=== PATIENT | male | born 1985 | race Caucasian/White ===

== ENCOUNTER → 2018-02-10 | Outpatient (CLI) | payer OTHER ==
[~2018-02-10] MED LIST: HYDCHL25; HYDCHL25 PO; IBUP800 PO; LISI20 PO; NORT10 PO; Norco 5-325 Ta1 EACH PO; Testostero100 MG/1 M IM
[2018-02-10 14:57] LABS: BASOPHILS ABSOLUTE AUTO 0.13 K/mm3 (0.00-0.23); BASOPHILS PERCENT AUTO 1 % (0-2); EOSINOPHILS ABSOLUTE AUTO 0.01 K/mm3 (0.00-0.68); EOSINOPHILS PERCENT AUTO 0 % (0-6); Hemoglobin 19.3 g/dL (13.5-17.5); IMMATURE GRAN ABSOLUTE AUTO 0.13 K/mm3 (0.00-0.10); IMMATURE GRAN PERCENT AUTO 1 % (0-1); LYMPHOCYTES ABSOLUTE AUTO 1.77 K/mm3 (0.84-5.20); LYMPHOCYTES PERCENT AUTO 8 % (21-46); MONOCYTES PERCENT AUTO 11 % (4-13); Mean Corpuscular HGB 29.2 pg (26.0-34.0); Mean Corpuscular HGB Conc 34.7 g/dL (31.5-36.5); Mean Corpuscular Volume 84 fL (80-100); Mean Platelet Volume 11.3 fL (9.1-12.4); NEUTROPHILS ABSOLUTE AUTO 19.07 K/mm3 (1.96-9.15); NEUTROPHILS PERCENT AUTO 81 % (41-73); Platelet Count 328 K/mm3 (150-400); RDW Coefficient Variation 15.7 % (11.7-14.2); RDW Standard Deviation 43.1 fL (35.1-46.3); White Blood Cell Count 23.61 K/mm3 (4.00-11.30)
[2018-02-10 14:59] LABS: Albumin, Blood 4.1 g/dL (3.4-5.0); Bilirubin, Total 1.4 mg/dL (0.1-1.0); Creatinine, Blood 1.5 mg/dL (0.60-1.20); Globulin, Blood 4.1 g/dL (2.2-4.0); Total Protein, Blood 8.2 g/dL (6.4-8.2)
[2018-02-10 15:00] LABS: Hematocrit 55.6 % (37.0-53.0)
== END | disposition home or self-care (01) ==
LOC: LAB SHORT 14:41 → LAB EV 14:41
PROVIDERS: General Practice
DX: L03.119 Cellulitis of unspecified part of limb (principal)
CPT/HCPCS: 80053; 85025; 85379

== ENCOUNTER → 2018-02-11 | Outpatient (CLI) | payer OTHER ==
[~2018-02-11] MED LIST changes: -HYDCHL25 PO; +LISI20; -LISI20 PO
[2018-02-11 12:07] LABS: BASOPHILS ABSOLUTE AUTO 0.11 K/mm3 (0.00-0.23); BASOPHILS PERCENT AUTO 1 % (0-2); EOSINOPHILS ABSOLUTE AUTO 0.08 K/mm3 (0.00-0.68); EOSINOPHILS PERCENT AUTO 0 % (0-6); Hematocrit 52.6 % (37.0-53.0); Hemoglobin 18.5 g/dL (13.5-17.5); IMMATURE GRAN ABSOLUTE AUTO 0.11 K/mm3 (0.00-0.10); IMMATURE GRAN PERCENT AUTO 1 % (0-1); LYMPHOCYTES ABSOLUTE AUTO 1.83 K/mm3 (0.84-5.20); LYMPHOCYTES PERCENT AUTO 8 % (21-46); MONOCYTES ABSOLUTE AUTO 1.93 K/mm3 (0.16-1.47); MONOCYTES PERCENT AUTO 9 % (4-13); Mean Corpuscular HGB 29.9 pg (26.0-34.0); Mean Corpuscular HGB Conc 35.2 g/dL (31.5-36.5); Mean Corpuscular Volume 85 fL (80-100); NEUTROPHILS PERCENT AUTO 81 % (41-73); RDW Coefficient Variation 14.6 % (11.7-14.2); RDW Standard Deviation 43.8 fL (35.1-46.3); Red Blood Cell Count 6.18 M/mm3 (4.30-5.90); White Blood Cell Count 21.86 K/mm3 (4.00-11.30)
[2018-02-11 12:44] LABS: Mean Platelet Volume 11.2 fL (9.1-12.4); Platelet Count 284 K/mm3 (150-400)
== END | disposition home or self-care (01) ==
LOC: LAB SHORT 12:03 → LAB EV 12:03
PROVIDERS: General Practice
DX: L03.119 Cellulitis of unspecified part of limb (principal)
CPT/HCPCS: 85025

== ENCOUNTER 2018-02-15 11:25 | Inpatient (IN) | payer OTHER ==
[~2018-02-15] VITALS: Ht 188 cm; Wt 168.6 kg
[~2018-02-15 11:25] MED LIST changes: -LISI20; +LISI20 PO
[2018-02-15 12:51] LABS: BASOPHILS ABSOLUTE AUTO 0.14 K/mm3 (0.00-0.23); BASOPHILS PERCENT AUTO 1 % (0-2); EOSINOPHILS ABSOLUTE AUTO 0.43 K/mm3 (0.00-0.68); EOSINOPHILS PERCENT AUTO 3 % (0-6); Hematocrit 52.3 % (37.0-53.0); Hemoglobin 17.1 g/dL (13.5-17.5); IMMATURE GRAN ABSOLUTE AUTO 0.26 K/mm3 (0.00-0.10); IMMATURE GRAN PERCENT AUTO 2 % (0-1); LYMPHOCYTES ABSOLUTE AUTO 1.89 K/mm3 (0.84-5.20); LYMPHOCYTES PERCENT AUTO 13 % (21-46); MONOCYTES ABSOLUTE AUTO 1.31 K/mm3 (0.16-1.47); MONOCYTES PERCENT AUTO 9 % (4-13); Mean Corpuscular HGB 28.1 pg (26.0-34.0); Mean Corpuscular HGB Conc 32.7 g/dL (31.5-36.5); Mean Corpuscular Volume 86 fL (80-100); Mean Platelet Volume 10.6 fL (9.1-12.4); NEUTROPHILS ABSOLUTE AUTO 10.94 K/mm3 (1.96-9.15); NEUTROPHILS PERCENT AUTO 73 % (41-73); Platelet Count 453 K/mm3 (150-400); RDW Coefficient Variation 14.2 % (11.7-14.2); RDW Standard Deviation 44.9 fL (35.1-46.3); Red Blood Cell Count 6.08 M/mm3 (4.30-5.90); White Blood Cell Count 14.97 K/mm3 (4.00-11.30)
[2018-02-15 12:58] LABS: Bun/Creatinine Ratio 16.9 (12.0-20.0); Calcium, Blood 9.3 mg/dL (8.5-10.1); Creatinine, Blood 1.77 mg/dL (0.60-1.20); Potassium, Blood 4.1 mmol/L (3.5-5.5)
[2018-02-15] MEDS ORDERED: HYDCHL25 PO (13:35)
[2018-02-16 04:38] LABS: BASOPHILS ABSOLUTE AUTO 0.08 K/mm3 (0.00-0.23); BASOPHILS PERCENT AUTO 1 % (0-2); EOSINOPHILS ABSOLUTE AUTO 0.01 K/mm3 (0.00-0.68); EOSINOPHILS PERCENT AUTO 0 % (0-6); Hematocrit 51.1 % (37.0-53.0); Hemoglobin 16.9 g/dL (13.5-17.5); IMMATURE GRAN ABSOLUTE AUTO 0.28 K/mm3 (0.00-0.10); IMMATURE GRAN PERCENT AUTO 2 % (0-1); LYMPHOCYTES ABSOLUTE AUTO 1.19 K/mm3 (0.84-5.20); LYMPHOCYTES PERCENT AUTO 9 % (21-46); MONOCYTES ABSOLUTE AUTO 0.44 K/mm3 (0.16-1.47); MONOCYTES PERCENT AUTO 3 % (4-13); Mean Corpuscular HGB 28.8 pg (26.0-34.0); Mean Corpuscular HGB Conc 33.1 g/dL (31.5-36.5); Mean Corpuscular Volume 87 fL (80-100); Mean Platelet Volume 10.8 fL (9.1-12.4); NEUTROPHILS PERCENT AUTO 85 % (41-73); Platelet Count 452 K/mm3 (150-400); RDW Coefficient Variation 13.9 % (11.7-14.2); RDW Standard Deviation 44.9 fL (35.1-46.3); Red Blood Cell Count 5.86 M/mm3 (4.30-5.90)
[2018-02-16 05:05] LABS: Albumin/Globulin Ratio 0.5 (0.8-1.8); Bilirubin, Total 0.5 mg/dL (0.1-1.0); Bun/Creatinine Ratio 18.8 (12.0-20.0); Calcium, Blood 8.8 mg/dL (8.5-10.1); Creatinine, Blood 1.6 mg/dL (0.60-1.20); Globulin, Blood 5.5 g/dL (2.2-4.0); Potassium, Blood 5.1 mmol/L (3.5-5.5); Total Protein, Blood 8.5 g/dL (6.4-8.2)
[2018-02-16 14:45] LABS: Vancomycin, Trough 13.9 ug/mL (5.0-10.0)
[2018-02-17 05:35] LABS: Anion Gap 9 mmol/L (6-16); Blood Urea Nitrogen 21 mg/dL (8-24); Bun/Creatinine Ratio 19.6 (12.0-20.0); CO2, Blood 22 mmol/L (21-32); Calcium, Blood 8.3 mg/dL (8.5-10.1); Chloride, Blood 106 mmol/L (98-108); Creatinine, Blood 1.07 mg/dL (0.60-1.20); Glomerular Filtration Rate >60 (60-); Glucose, Blood 180 mg/dL (70-99); Potassium, Blood 4.7 mmol/L (3.5-5.5); Sodium, Blood 137 mmol/L (136-145)
[2018-02-17] MEDS ORDERED: TYLENOL325 MG PO (12:36)
[2018-02-17] MEDS ORDERED: MIRALAX17 GM PO (12:36)
[2018-02-17] MEDS ORDERED: OXYC5 PO (12:37)
[2018-02-17] MEDS ORDERED: SENN187 PO (12:37)
[2018-02-17] MEDS ORDERED: VARE1 PO (12:39)
[2018-02-17] MEDS ORDERED: CLIN150 PO (12:40)
== END 2018-02-17 16:21 | disposition home or self-care (01) | DRG 581 ==
LOC: ER 11:25 → MEDS 11:26 → ENPENDDIS 02-17 08:43 → MEDS 02-17 16:21
PROVIDERS: Emergency Medicine; Internal Medicine; Surgery
PROC: 0J9N0ZZ Drainage of Right Lower Leg Subcutaneous Tissue and Fascia, Open Approach (ICD-10-PCS; principal; 2018-02-15 18:00)
DX: L02.415 Cutaneous abscess of right lower limb (principal); L03.115 Cellulitis of right lower limb; B95.1 Streptococcus, group B, as the cause of diseases classified elsewhere; I10 Essential (primary) hypertension; N28.9 Disorder of kidney and ureter, unspecified; T39.395A Adverse effect of other nonsteroidal anti-inflammatory drugs [NSAID], initial encounter; F17.220 Nicotine dependence, chewing tobacco, uncomplicated; Z79.899 Other long term (current) drug therapy
CPT/HCPCS: 36415; 73701; 80048; 80053; 80202; 83605; 85025; 87040; 87070; 87075; 87147; 87205; 93005; 93010; 96374; 99285; J1100; J1650; J1885; J2001; J2250; J2405; J3010; J3370; J7030; J7050; J7120; Q9967

== ENCOUNTER → 2018-03-30 | Outpatient (CLI) | payer OTHER ==
[~2018-03-30] MED LIST changes: +CLIN150 PO; +HYDCHL25 PO; +MIRALAX17 GM PO; +OXYC5 PO; +SENN187 PO; +TYLENOL325 MG PO; +VARE1 PO
[2018-03-30 19:15] LABS: BASOPHILS ABSOLUTE AUTO 0.08 K/mm3 (0.00-0.23); BASOPHILS PERCENT AUTO 1 % (0-2); EOSINOPHILS ABSOLUTE AUTO 0.36 K/mm3 (0.00-0.68); EOSINOPHILS PERCENT AUTO 3 % (0-6); Hematocrit 51.1 % (37.0-53.0); IMMATURE GRAN ABSOLUTE AUTO 0.03 K/mm3 (0.00-0.10); IMMATURE GRAN PERCENT AUTO 0 % (0-1); LYMPHOCYTES ABSOLUTE AUTO 2.99 K/mm3 (0.84-5.20); LYMPHOCYTES PERCENT AUTO 25 % (21-46); MONOCYTES ABSOLUTE AUTO 1.04 K/mm3 (0.16-1.47); MONOCYTES PERCENT AUTO 9 % (4-13); Mean Corpuscular HGB 29.6 pg (26.0-34.0); Mean Corpuscular HGB Conc 35.2 g/dL (31.5-36.5); Mean Corpuscular Volume 84 fL (80-100); Mean Platelet Volume 11.4 fL (9.1-12.4); NEUTROPHILS PERCENT AUTO 63 % (41-73); Platelet Count 387 K/mm3 (150-400); RDW Coefficient Variation 15.1 % (11.7-14.2); RDW Standard Deviation 44.4 fL (35.1-46.3); Red Blood Cell Count 6.08 M/mm3 (4.30-5.90)
[2018-03-30 19:25] LABS: Alanine Aminotransfer (ALT/SGP 58 U/L (12-78); Alk Phos 79 U/L (40-126); Anion Gap 13 mmol/L (6-16); Aspartate Aminotrans (AST/SGOT 25 U/L (12-37); Bilirubin, Total 0.5 mg/dL (0.1-1.0); Blood Urea Nitrogen 15 mg/dL (8-24); Bun/Creatinine Ratio 11.2 (12.0-20.0); CO2, Blood 23 mmol/L (21-32); Calcium, Blood 8.8 mg/dL (8.5-10.1); Chloride, Blood 100 mmol/L (98-108); Creatinine, Blood 1.34 mg/dL (0.60-1.20); Glomerular Filtration Rate >60 (60-); Glucose, Blood 97 mg/dL (70-99); Potassium, Blood 3.4 mmol/L (3.5-5.5); Sodium, Blood 136 mmol/L (136-145)
== END ==
LOC: LAB EV 19:10 → LAB SHORT 19:10
PROVIDERS: Nurse Practitioner
DX: R19.7 Diarrhea, unspecified (principal)
CPT/HCPCS: 80053; 85025

== ENCOUNTER → 2018-04-01 | Outpatient (CLI) | payer OTHER ==
[2018-04-01 12:33] LABS: Adenovirus F 40/41 Not Detected (NOT DETECT); Astrovirus Not Detected (NOT DETECT); Campylobacter Sp Not Detected (NOT DETECT); Cryptosporidium Not Detected (NOT DETECT); Cyclospora Cayetanensis Not Detected (NOT DETECT); E. Coli O157 Not Detected (NOT DETECT); Entamoeba Histolytica Not Detected (NOT DETECT); Enteroaggregative E. coli-EAEC Not Detected (NOT DETECT); Enteropathogenic E. coli-EPEC Not Detected (NOT DETECT); Enterotoxigenic E. coli-ETEC Not Detected (NOT DETECT); Giardia Lamblia Not Detected (NOT DETECT); Norovirus GI/GII Not Detected (NOT DETECT); Plesiomonas Shigelloides Not Detected (NOT DETECT); Rotavirus A Not Detected (NOT DETECT); Salmonella Sp Not Detected (NOT DETECT); Sapovirus Not Detected (NOT DETECT); Shiga Toxin-prod E. coli-STEC Not Detected (NOT DETECT); Shigella/Enteroin E. coli-EIEC Not Detected (NOT DETECT); Vibrio Cholerae Not Detected (NOT DETECT); Vibrio Sp Not Detected (NOT DETECT); Yersinia Enterocolitica Not Detected (NOT DETECT)
== END ==
LOC: LAB EV 12:31 → LAB SHORT 12:31
PROVIDERS: Nurse Practitioner
DX: R19.7 Diarrhea, unspecified (principal)
CPT/HCPCS: 87507

== ENCOUNTER 2019-04-23 19:22 | Emergency (ER) | payer OTHER ==
[~2019-04-23] VITALS: Ht 185.4 cm; Wt 155.6 kg
[2019-04-23 20:22] LABS: BASOPHILS ABSOLUTE AUTO 0.07 K/mm3 (0.00-0.23); BASOPHILS PERCENT AUTO 1 % (0-2); EOSINOPHILS ABSOLUTE AUTO 0.29 K/mm3 (0.00-0.68); EOSINOPHILS PERCENT AUTO 2 % (0-6); Hematocrit 52.9 % (37.0-53.0); Hemoglobin 18.2 g/dL (13.5-17.5); IMMATURE GRAN ABSOLUTE AUTO 0.05 K/mm3 (0.00-0.10); IMMATURE GRAN PERCENT AUTO 0 % (0-1); LYMPHOCYTES ABSOLUTE AUTO 1.54 K/mm3 (0.84-5.20); LYMPHOCYTES PERCENT AUTO 12 % (21-46); MONOCYTES ABSOLUTE AUTO 0.88 K/mm3 (0.16-1.47); MONOCYTES PERCENT AUTO 7 % (4-13); Mean Corpuscular HGB 29.4 pg (26.0-34.0); Mean Corpuscular HGB Conc 34.4 g/dL (31.5-36.5); Mean Corpuscular Volume 85 fL (80-100); Mean Platelet Volume 11.3 fL (9.1-12.4); NEUTROPHILS ABSOLUTE AUTO 9.61 K/mm3 (1.96-9.15); NEUTROPHILS PERCENT AUTO 77 % (41-73); Platelet Count 305 K/mm3 (150-400); RDW Coefficient Variation 13.8 % (11.7-14.2); RDW Standard Deviation 42.8 fL (35.1-46.3); White Blood Cell Count 12.44 K/mm3 (4.00-11.30)
[2019-04-23 20:39] LABS: Albumin, Blood 3.5 g/dL (3.4-5.0); Albumin/Globulin Ratio 0.8 (0.8-1.8); Bilirubin, Total 0.4 mg/dL (0.1-1.0); Bun/Creatinine Ratio 13.2 (12.0-20.0); Calcium, Blood 9.3 mg/dL (8.5-10.1); Creatinine, Blood 1.44 mg/dL (0.60-1.20); Globulin, Blood 4.3 g/dL (2.2-4.0); Potassium, Blood 3.5 mmol/L (3.5-5.5); Total Protein, Blood 7.8 g/dL (6.4-8.2)
[2019-04-23] MEDS ORDERED: Roxicodone5 MG PO (22:37)
[2019-04-23] MEDS ORDERED: Clindamycin HC300 MG PO (22:37)
== END 2019-04-23 23:25 | disposition home or self-care (01) ==
LOC: ER 19:22
PROVIDERS: Physician Assistant
DX: L03.116 Cellulitis of left lower limb (principal); I10 Essential (primary) hypertension; Z88.5 Allergy status to narcotic agent; Z79.899 Other long term (current) drug therapy; Z87.442 Personal history of urinary calculi
CPT/HCPCS: 36415; 80053; 83605; 85025; 96361; 96365; 99283-25; J7030; J7120

== ENCOUNTER 2019-04-24 08:50 | Day surgery (SDC) | payer OTHER ==
[~2019-04-24 08:50] MED LIST changes: +Clindamycin HC300 MG PO; +Roxicodone5 MG PO
== END 2019-04-24 17:10 | disposition home or self-care (01) ==
LOC: ATC 08:50
DX: L03.116 Cellulitis of left lower limb (principal); I10 Essential (primary) hypertension
CPT/HCPCS: 96365

== ENCOUNTER 2019-04-25 00:30 | Day surgery (SDC) | payer OTHER | END 2019-04-25 16:21 | disposition home or self-care (01) | LOC: ATC 00:30 | DX: L03.116 Cellulitis of left lower limb (principal); I10 Essential (primary) hypertension; Z79.899 Other long term (current) drug therapy; Z88.5 Allergy status to narcotic agent | CPT/HCPCS: 96365 ==

== ENCOUNTER 2019-04-25 00:47 | Emergency (ER) | payer OTHER ==
[~2019-04-25] VITALS: Ht 185.4 cm; Wt 104.3 kg
== END 2019-04-25 01:47 | disposition home or self-care (01) ==
LOC: ER 00:47
DX: L03.116 Cellulitis of left lower limb (principal); I10 Essential (primary) hypertension; Z87.442 Personal history of urinary calculi; Z88.5 Allergy status to narcotic agent; Z79.899 Other long term (current) drug therapy
CPT/HCPCS: 96365

== ENCOUNTER 2019-04-25 23:45 | Emergency (ER) | payer OTHER ==
[~2019-04-25] VITALS: Ht 185.4 cm; Wt 160.6 kg
== END 2019-04-26 00:32 | disposition home or self-care (01) ==
LOC: ER 23:45
DX: L03.116 Cellulitis of left lower limb (principal); I10 Essential (primary) hypertension; Z76.89 Persons encountering health services in other specified circumstances; Z87.442 Personal history of urinary calculi; Z88.5 Allergy status to narcotic agent; Z79.899 Other long term (current) drug therapy
CPT/HCPCS: 96365

== ENCOUNTER 2019-04-26 00:36 | Day surgery (SDC) | payer OTHER | END 2019-04-26 16:12 | disposition home or self-care (01) | LOC: ATC 00:36 | DX: L03.116 Cellulitis of left lower limb (principal); I10 Essential (primary) hypertension; Z79.899 Other long term (current) drug therapy; Z88.5 Allergy status to narcotic agent | CPT/HCPCS: 96365 ==

== ENCOUNTER 2019-08-03 14:38 | Emergency (ER) | payer SELFPAY ==
[~2019-08-03] VITALS: Ht 185.4 cm; Wt 158.8 kg
[2019-08-03] MEDS ORDERED: CEPH500 PO (15:28)
[2019-08-03] MEDS ORDERED: Monodox100 MG PO (15:28)
== END 2019-08-03 15:34 | disposition home or self-care (01) ==
LOC: ER 14:38
DX: L03.116 Cellulitis of left lower limb (principal); I10 Essential (primary) hypertension; Z88.5 Allergy status to narcotic agent; Z79.899 Other long term (current) drug therapy
CPT/HCPCS: 99282

== ENCOUNTER 2019-12-12 08:45 | Emergency (ER) | payer MEDICAID ==
[~2019-12-12] VITALS: Ht 185.4 cm; Wt 145.2 kg
[~2019-12-12 08:45] MED LIST changes: +CEPH500 PO; +Monodox100 MG PO
[2019-12-12] MEDS ORDERED: EUTHYROX50 MC1 PO (09:21)
[2019-12-12] MEDS ORDERED: Bactrim Ds Tab1 EACH PO (09:31)
[2019-12-12] MEDS ORDERED: CEPH500 PO (09:31)
== END 2019-12-12 09:50 | disposition home or self-care (01) ==
LOC: ER 08:45
DX: L03.115 Cellulitis of right lower limb (principal); L03.116 Cellulitis of left lower limb; I10 Essential (primary) hypertension; Z88.5 Allergy status to narcotic agent; Z79.899 Other long term (current) drug therapy
CPT/HCPCS: 99283

== ENCOUNTER 2020-01-01 10:49 | Emergency (ER) | payer OTHER ==
[~2020-01-01] VITALS: Ht 185.4 cm; Wt 163.3 kg
[~2020-01-01 10:49] MED LIST changes: +Bactrim Ds Tab1 EACH PO; +EUTHYROX50 MC1 PO
[2020-01-01] MEDS ORDERED: Prinivil10 MG PO (11:29)
[2020-01-01] MEDS ORDERED: KEFLEX500 MG PO (11:29)
== END 2020-01-01 11:49 | disposition home or self-care (01) ==
LOC: ER 10:49
DX: M79.671 Pain in right foot (principal); I10 Essential (primary) hypertension; Z88.5 Allergy status to narcotic agent; Z79.899 Other long term (current) drug therapy; Z79.2 Long term (current) use of antibiotics
CPT/HCPCS: 99283

== ENCOUNTER 2020-05-10 15:57 | Emergency (ER) | payer OTHER ==
[~2020-05-10] VITALS: Ht 185.4 cm; Wt 163.3 kg
[~2020-05-10 15:57] MED LIST changes: +KEFLEX500 MG PO; +Prinivil10 MG PO
[2020-05-10] MEDS ORDERED: Bactrim Ds Tab1 EACH PO (16:17)
[2020-05-10] MEDS ORDERED: KEFLEX500 MG PO (16:17)
== END 2020-05-10 16:29 | disposition home or self-care (01) ==
LOC: ER 15:57
DX: L03.116 Cellulitis of left lower limb (principal); B95.62 Methicillin resistant Staphylococcus aureus infection as the cause of diseases classified elsewhere; I10 Essential (primary) hypertension; Z88.5 Allergy status to narcotic agent; Z79.899 Other long term (current) drug therapy; Z87.442 Personal history of urinary calculi
CPT/HCPCS: 99282

== ENCOUNTER 2020-12-26 19:48 | Emergency (ER) | payer OTHER ==
[~2020-12-26] VITALS: Ht 185.4 cm; Wt 147.4 kg
[2020-12-26 20:28] LABS: BASOPHILS ABSOLUTE AUTO 0.02 K/mm3 (0.00-0.23); BASOPHILS PERCENT AUTO 0 % (0-2); EOSINOPHILS ABSOLUTE AUTO 0.01 K/mm3 (0.00-0.68); EOSINOPHILS PERCENT AUTO 0 % (0-6); Hemoglobin 14.9 g/dL (13.5-17.5); IMMATURE GRAN ABSOLUTE AUTO 0.02 K/mm3 (0.00-0.10); IMMATURE GRAN PERCENT AUTO 0 % (0-1); LYMPHOCYTES ABSOLUTE AUTO 1.23 K/mm3 (0.84-5.20); LYMPHOCYTES PERCENT AUTO 22 % (21-46); MONOCYTES ABSOLUTE AUTO 0.33 K/mm3 (0.16-1.47); MONOCYTES PERCENT AUTO 6 % (4-13); Mean Corpuscular HGB 28.5 pg (26.0-34.0); Mean Corpuscular HGB Conc 34.7 g/dL (31.5-36.5); Mean Corpuscular Volume 82 fL (80-100); Mean Platelet Volume 10.8 fL (9.1-12.4); NEUTROPHILS ABSOLUTE AUTO 4.11 K/mm3 (1.96-9.15); NEUTROPHILS PERCENT AUTO 72 % (41-73); Platelet Count 252 K/mm3 (150-400); RDW Coefficient Variation 13.5 % (11.7-14.2); RDW Standard Deviation 40.7 fL (35.1-46.3); Red Blood Cell Count 5.22 M/mm3 (4.30-5.90); White Blood Cell Count 5.72 K/mm3 (4.00-11.30)
[2020-12-26 20:45] LABS: Alanine Aminotransfer (ALT/SGP 34 U/L (12-78); Albumin, Blood 2.9 g/dL (3.4-5.0); Albumin/Globulin Ratio 0.7 (0.8-1.8); Alk Phos 68 U/L (50-136); Anion Gap 6 mmol/L (6-16); Aspartate Aminotrans (AST/SGOT 31 U/L (12-37); Bilirubin, Total 0.3 mg/dL (0.1-1.0); Blood Urea Nitrogen 12 mg/dL (8-24); Bun/Creatinine Ratio 11.5 (12.0-20.0); CO2, Blood 27 mmol/L (21-32); Calcium, Blood 7.8 mg/dL (8.5-10.1); Chloride, Blood 98 mmol/L (98-108); Creatinine, Blood 1.04 mg/dL (0.60-1.20); Globulin, Blood 4.2 g/dL (2.2-4.0); Glomerular Filtration Rate >60 (60-); Glucose, Blood 114 mg/dL (70-99); Potassium, Blood 3.2 mmol/L (3.5-5.5); Sodium, Blood 131 mmol/L (136-145); Total Protein, Blood 7.1 g/dL (6.4-8.2)
== END 2020-12-27 01:10 | disposition home or self-care (01) ==
LOC: ER 19:48
PROVIDERS: Physician Assistant
DX: U07.1 COVID-19 (principal); R09.02 Hypoxemia; I10 Essential (primary) hypertension; Z79.899 Other long term (current) drug therapy; Z87.442 Personal history of urinary calculi
CPT/HCPCS: 71046; 71260; 80053; 85025; 99285-25; Q9967

== ENCOUNTER 2021-04-01 11:17 | Emergency (ER) | payer OTHER ==
[~2021-04-01] VITALS: Ht 185.4 cm; Wt 144.2 kg
[2021-04-01 12:10] LABS: BASOPHILS ABSOLUTE AUTO 0.14 K/mm3 (0.00-0.23); BASOPHILS PERCENT AUTO 1 % (0-2); EOSINOPHILS ABSOLUTE AUTO 0.51 K/mm3 (0.00-0.68); EOSINOPHILS PERCENT AUTO 3 % (0-6); Hematocrit 49.4 % (37.0-53.0); Hemoglobin 16.9 g/dL (13.5-17.5); IMMATURE GRAN ABSOLUTE AUTO 0.07 K/mm3 (0.00-0.10); IMMATURE GRAN PERCENT AUTO 0 % (0-1); LYMPHOCYTES ABSOLUTE AUTO 2.13 K/mm3 (0.84-5.20); LYMPHOCYTES PERCENT AUTO 14 % (21-46); MONOCYTES ABSOLUTE AUTO 1.14 K/mm3 (0.16-1.47); MONOCYTES PERCENT AUTO 7 % (4-13); Mean Corpuscular HGB 29.2 pg (26.0-34.0); Mean Corpuscular HGB Conc 34.2 g/dL (31.5-36.5); Mean Corpuscular Volume 85 fL (80-100); NEUTROPHILS ABSOLUTE AUTO 11.79 K/mm3 (1.96-9.15); NEUTROPHILS PERCENT AUTO 75 % (41-73); Platelet Count 403 K/mm3 (150-400); RDW Coefficient Variation 14.1 % (11.7-14.2); RDW Standard Deviation 43.8 fL (35.1-46.3); Red Blood Cell Count 5.79 M/mm3 (4.30-5.90); White Blood Cell Count 15.78 K/mm3 (4.00-11.30)
[2021-04-01 12:28] LABS: Alanine Aminotransfer (ALT/SGP 47 U/L (12-78); Albumin, Blood 3.6 g/dL (3.4-5.0); Albumin/Globulin Ratio 0.8 (0.8-1.8); Alk Phos 104 U/L (50-136); Anion Gap 5 mmol/L (6-16); Aspartate Aminotrans (AST/SGOT 18 U/L (12-37); Bilirubin, Total 0.4 mg/dL (0.1-1.0); Blood Urea Nitrogen 8 mg/dL (8-24); Bun/Creatinine Ratio 9.7 (12.0-20.0); CO2, Blood 27 mmol/L (21-32); Calcium, Blood 9.3 mg/dL (8.5-10.1); Chloride, Blood 104 mmol/L (98-108); Creatinine, Blood 0.83 mg/dL (0.60-1.20); Globulin, Blood 4.5 g/dL (2.2-4.0); Glomerular Filtration Rate >60 (60-); Glucose, Blood 119 mg/dL (70-99); Potassium, Blood 3.8 mmol/L (3.5-5.5); Sodium, Blood 136 mmol/L (136-145); Total Protein, Blood 8.1 g/dL (6.4-8.2)
[2021-04-01 15:57] LABS: BODY FLUID RBC 0.046 M/mm3 (0-0); RBC Count, Synovial Fluid 46000 /mm3 (0-0); WBC Count, Synovial Fluid 210 /mm3 (0-180)
[2021-04-01 16:03] LABS: Body Fluid Crystals NEG (NEGATIVE)
[2021-04-01 16:04] LABS: Appearance, Synovial Fluid Cloudy (Clear); Color, Synovial Fluid Red (None-P Yel)
[2021-04-01 16:34] LABS: Eos, Synovial Fluid 3 % (0-2); Lymphs, Synovial Fluid 4 % (0-15); Monocytes/Macrophages, Synovia 63 % (0-65); Neutrophils, Synovial Fluid 30 % (0-24)
[2021-04-01] MEDS ORDERED: ACET500 PO (17:06)
[2021-04-01] MEDS ORDERED: IBUP400 PO (17:06)
[2021-04-01] MEDS ORDERED: BACTRIM DS TAB1 EAC2 PO (17:06)
[2021-04-01] MEDS ORDERED: CEPH500 PO (17:06)
== END 2021-04-01 17:21 | disposition home or self-care (01) ==
LOC: ER 11:17
PROVIDERS: Physician Assistant; Student in an Organized Health Care Education/Training Program
DX: L03.115 Cellulitis of right lower limb (principal); M25.471 Effusion, right ankle; I10 Essential (primary) hypertension; Z88.5 Allergy status to narcotic agent
CPT/HCPCS: 20605; 36415; 80053; 85025; 87070; 87075; 87205; 89051; 89060; 93971; 96374-59; 99284-25; J1885

== ENCOUNTER 2024-06-12 00:07 | Emergency (ER) | payer OTHER ==
[~2024-06-12] VITALS: Ht 182.9 cm; Wt 163.3 kg
[~2024-06-12 00:07] MED LIST changes: +ACET500 PO; +BACTRIM DS TAB1 EAC2 PO; +IBUP400 PO
[2024-06-12 00:14] VITALS: BP 211/130
== END 2024-06-12 02:21 | disposition home or self-care (01) ==
LOC: ER 00:07
DX: S51.812A Laceration without foreign body of left forearm, initial encounter (principal); S01.81XA Laceration without foreign body of other part of head, initial encounter; X99.0XXA Assault by sharp glass, initial encounter; I10 Essential (primary) hypertension; Z88.5 Allergy status to narcotic agent; Z79.899 Other long term (current) drug therapy
CPT/HCPCS: 12002; 73090; 99284-25